=== PATIENT | female | born 1965 | race Caucasian/White ===

== ENCOUNTER → 2021-05-30 14:56 | Outpatient (BNVA) | payer SELFPAY | PROVIDERS: Family Provider Family Medicine; PCP Family Medicine; Referring Provider Physician Assistant; Visit Provider Podiatrist Foot & Ankle Surgery | DX: M25.572 Pain in left ankle and joints of left foot (principal) | CPT/HCPCS: 73610 ==

== ENCOUNTER 2022-06-19 11:45 | Emergency (ER) | payer OTHER, SELFPAY ==
[2022-06-19 12:04] VITALS: BP 164/97; PULSE 76; RESP 18; TEMP 37; O2SAT 96; BMI 38.7
[2022-06-19 12:13] VITALS: BP 164/97; PULSE 76; RESP 18; TEMP 37; O2SAT 96
--- NOTE | 2022-06-19 12:33 | XR_ITS ---
WS: [id number] Left leg including the tibia and fibula, AP and lateral views, 06/19/2022 Clinical Data: left lower leg pain Comparison: Left ankle, 05/30/2021. Findings: No fractures or dislocations are seen. The left tibia and fibula are intact. The soft tissues are nor mal. XR/XR tibia fibula LT 2V [id number] Impression: Negative left leg.
--- NOTE | 2022-06-19 12:33 | USCV_ITS ---
FideliaEstela arboleda Age: 57 Gender: F : 1965 Exam Date: 06/19/2022 13:12 Ordering Phys: Nicolás Gaytan Technologist: Satish Min Exam Location: [facility]_ Indication: lt leg pain and swelling PROCEDURES: Venous duplex imaging was performed in only the left lower extremity. The following venous structures were evaluated: common femoral vein, profunda vein, proximal portion of the greater saphenous vein, superficial femoral vein, and the popliteal vein. In addition, the posterior tibial and peroneal trunk were evaluated. On the left side, the common femoral, superficial femoral, profunda femoral, popliteal, posterior tibial, greater saphenous veins, and the peroneal trunk were identified and interrogated in the standard fashion. FINDINGS: Normal 2-D Doppler and augmentation and compressibility throughout the lower extremity venous structures. Additional imaging through the proximal calf veins also reveals no thrombus. Limited evaluation of the greater saphenous vein is patent with no thrombus. CONCLUSIONS No DVT left lower extremity. Dr. Autumn Magaña DO (Electronically Signed) Final Date: 19 June 2022 15:40 S
--- NOTE | 2022-06-19 12:37 | ED_ITS ---
HPI - Extremity Problem General: Chief complaint: Extremity Injury, Lower Stated complaint: Lower left leg pain Time Seen by Provider: 06/19/22 12:08 History of Present Illness: Pt is a 57 y/o female who comes to the ED with Left lower leg pain. Symptoms started earlier today. denies any injury or trauma. Patient says she was sitting down at work and when she went to stand up she felt the pain in her left lower leg. She states the pain is mild when at rest but if she does any weightbearing her symptoms worsen. She took 2 Tylenol just prior to arrival to the ED. Denies any past blood clots, chest pain, shortness of breath or hemoptysis. Associated symptoms: Deny chest pain, fever(s) or rash Review of Systems Const: Denies: fever(s), chills or fatigue Eyes: Denies: change in vision or eye discomfort ENMT: Denies: throat pain, odynophagia, nasal discharge or nasal congestion Card: Denies: chest pain, palpitations, edema, swelling of feet/ankles, dyspnea on exertion or orthopnea Resp: Denies: dyspnea, productive cough or non-productive cough GI: Denies: abdominal pain, nausea, vomiting, diarrhea, constipation or hematochezia : Denies: flank pain, dysuria or hematuria Musc: Reports: extremity pain (Left lower leg); Denies: neck pain, back pain or extremity swelling Skin/Breast: Denies: rash or new lesions Neuro: Denies: headache(s), numbness in extremities or weakness in extremities [facility] ED PFSH: Medical History (Updated 06/20/22 @ 11:14 by JENNY Ventura) No pertinent family history Surgical History (Updated 06/20/22 @ 11:14 by JENNY Ventura) No pertinent past surgical history Female Reproductive History: Date of last menstrual period: 05/28/22 Physical Exam Const: COMMON NORMALS: no acute distress, patient oriented x3 and alert HENMT: COMMON NORMALS: normocephalic HEAD & SCALP: normocephalic MOUTH: Normal oral and palatal mucosa present THROAT: posterior oropharynx normal and uvula midline Neck/C-Spine: COMMON NORMALS: supple GENERAL: Yes normal visual inspection Resp: COMMON NORMALS: normal respiratory effort, No retractions, No use of accessory muscles and clear to auscultation bilaterally AUSCULTATION: clear to auscultation bilaterally Cardio: COMMON NORMALS: regular rate, regular rhythm, S1 normal heart sound present, S2 normal heart sound present, No gallops present (Cardio), No clicks present (Cardio), No murmurs present (Cardio) and Peripheral pulses 2+ throughout RATE: regular rate RHYTHM: regular rhythm HEART SOUNDS: S1 normal heart sound present and S2 normal heart sound present PERIPHERAL P ULSES: Peripheral pulses 2+ throughout GI: COMMON NORMALS: Normal to inspection, nondistended, normoactive bowel sounds present, Soft to palpation, non-tender and no masses PALPATION: Yes Soft to palpation : COMMON NORMALS: Yes no CVA tenderness BLADDER/KIDNEY EXAM: Yes no CVA tenderness Back/Pelvis: COMMON NORMALS: no CVA tenderness Extremity: COMMON NORMALS: normal to inspection, no calf tenderness and no pedal edema Neuro: COMMON NORMALS: patient oriented x3 SENSORIUM/ORIENTATION: Yes alert GAIT: Yes Normal gait present Skin: GENERAL SKIN EXAM: dry skin Course Vital Signs: Vital signs: Vital Signs Temperature 98.6 F 06/19/22 12:13 Pulse Rate 76 06/19/22 12:13 Respiratory Rate 18 06/19/22 12:13 Blood Pressure 164/97 06/19/22 12:13 Pulse Oximetry 96 06/19/22 12:13 MDM - Extremity (Nontraumatic) Medical Decision Making Patient is a 57-year-old female comes in the ED with left lower leg pain. Denies any injury or trauma, symptoms. Vitals are stable. Patient appears nontoxic and in no acute distress or pain. She has no left calf tenderness lower leg edema. Neurovascular tact. Ultrasound venous duplex of left lower extremity showed no blood clots or DVTs. X-ray of left tib-fib showed no acute findings. Patient diagnosed with pain in left lower leg and was discharged home. Told to follow-up with PCP in the next week for reevaluation. Patient stood agree with plan. Lab Data Radiology Impressions Tibia/Fibula X-Ray 06/19/22 12:33 Impression: Negative left leg. Discharge Plan Discharge Patient Disposition: Home Clinical Impression: Pain in left lower leg Condition: Stable Prescriptions: No Action hydrochlorothiazide 12.5 mg tablet 12.5 mg PO DAILY rosuvastatin [Crestor] 20 mg tablet 20 mg PO DAILY metoprolol succinate 25 mg tablet extended release 24 hr 12.5 mg PO DAILY venlafaxine 75 mg tablet 75 mg PO DAILY meloxicam 15 mg tablet 15 mg PO DAILY (DME) cam boot See Rx Instructions .ROUTE .MEDSUPPLY Qty: 1 0RF Rx Instructions: As directed Discharge Orders: Discharge ED (Routine); Ordered 06/19/22 Ordered By: Nicolás Gaytan Referrals: Julita Wu PA [Primary Care Provider] - Discharge Diet: Regular Discharge Activity: Increase activity as tolerated Activity Restrictions/Additional Instructions: Follow-up with medical provider as directed in the next 7 to 10 days for reevaluation. Continue taking all medications as previously prescribed. return to the ER or your medical provider if condition worsens. Please read and understand discharge instructions. Thank you for choosing [facility] for your healthcare needs today. Please realize this is an emergency room and that we are providing you with a medical screening exam and this may not be complete and all inclusive of all the testing and or work up that you may need to determine your ailment or severity of your illness. It is very important that you follow up as instructed or that you return to the Emergency Department should you have concerns or if your condition changes or worsens in any way. Coding Level of Care Code ED [employer] for [facility] Exam Comprehensive
== END 2022-06-19 14:52 | disposition home or self-care (01) ==
PROVIDERS: Emergency Provider Physician Assistant; PCP Physician Assistant
DX: M79.662 Pain in left lower leg (principal)
CPT/HCPCS: 73590; 93971; 99284

== ENCOUNTER → 2024-02-08 12:48 | Outpatient (BNVA) | payer OTHER, BC, MEDICAID, SELFPAY | PROVIDERS: PCP Physician Assistant; Referring Provider Physician Assistant; Visit Provider Specialist | DX: M17.11 Unilateral primary osteoarthritis, right knee | CPT/HCPCS: 73560; 73565 ==

== ENCOUNTER 2024-02-25 14:22 | Outpatient (RCR) | payer OTHER, BC, MEDICAID, SELFPAY | END 2024-03-25 23:59 | disposition home or self-care (01) | LOC: SPT 14:22 | PROVIDERS: Visit Provider Specialist | DX: M25.561 Pain in right knee (principal) | CPT/HCPCS: 97110; 97161; 97530 ==

== ENCOUNTER 2024-03-26 06:00 | Outpatient (RCR) | payer OTHER, BC, MEDICAID, SELFPAY | END 2024-04-24 23:59 | disposition home or self-care (01) | LOC: SPT 06:00 | PROVIDERS: Visit Provider Specialist | DX: M25.561 Pain in right knee (principal) | CPT/HCPCS: 97110; 97530 ==

== ENCOUNTER → 2024-05-02 13:22 | Outpatient (BNVA) | payer OTHER, BC, MEDICAID, SELFPAY | PROVIDERS: PCP Physician Assistant; Visit Provider Nurse Practitioner | DX: M25.532 Pain in left wrist (principal); M65.4 Radial styloid tenosynovitis [de Quervain] | CPT/HCPCS: 73110 ==

== ENCOUNTER → 2025-02-13 08:17 | Outpatient (BNVA) | payer OTHER, BC, MEDICAID, SELFPAY | PROVIDERS: PCP Physician Assistant; Visit Provider Nurse Practitioner | DX: M65.4 Radial styloid tenosynovitis [de Quervain] (principal); R03.0 Elevated blood-pressure reading, without diagnosis of hypertension | CPT/HCPCS: 73110 ==

== ENCOUNTER 2025-02-13 09:59 | Outpatient (CLI) | payer OTHER, BC, MEDICAID, SELFPAY | END 2025-02-13 10:00 | disposition home or self-care (01) | LOC: SPT 09:59 | PROVIDERS: PCP Physician Assistant; Visit Provider Nurse Practitioner | DX: Z46.89 Encounter for fitting and adjustment of other specified devices (principal); M65.4 Radial styloid tenosynovitis [de Quervain] | CPT/HCPCS: L3809 ==